=== PATIENT | male | born 1940 | race Caucasian/White ===

== ENCOUNTER 2017-01-25 12:45 | Emergency (ER) | payer MEDICARE, BC ==
[~2017-01-25] VITALS: Ht 177.8 cm; Wt 77.3 kg
[~2017-01-25 12:45] MED LIST: FLUOXETINE; INSULIN HUMA100 U/ML IJ; LANTUS100 U/ML; LIPITOR; PLAVIX 75MG TAB75 MG PO; RAMIPRIL5 MG PO; ZETIA 10MG TAB10 MG PO
[2017-01-25 12:51] VITALS: TEMP 98.7
[2017-01-25 13:39] LABS: BASO % 0.2 % (0.0-2.0); EOS % 0.1 % (0-4.0); GRAN # 9.3 (1.4-6.5); GRAN % 79.8 % (42.2-75.2); HEMATOCRIT 39.1 % (42.0-52.0); HEMOGLOBIN 13.5 g/dl (13.5-18.0); LYMPH # 1.5 (1.2-3.4); LYMPH % 12.6 % (20.0-51.0); MEAN CELL VOLUME 94 fl (80.0-100.0); MEAN CORPUSCULAR HEMOGLOBIN 33 pg (27.0-31.0); MEAN CORPUSCULAR HGB CONC 35 g/dl (33.0-37.0); MEAN PLATELET VOLUME 10.1 fl (7.4-10.4); MONO # 0.8 (0.1-0.6); MONO % 6.9 % (1.7-9.3); PLATELET COUNT 233 K/mm3 (130-400); RED BLOOD COUNT 4.14 M/mm3 (4.20-5.60); REDCELL DISTRIBUTION WIDTH-CV 12.3 % (11.5-14.5); WHITE BLOOD COUNT 11.7 K/mm3 (4.8-10.8)
[2017-01-25 13:57] LABS: ADJUSTED CALCIUM 8.9 mg/dL (8.4-10.2); ALANINE AMINOTRANSFERASE 20 U/L (21-72); ALBUMIN 4.2 gm/dL (3.5-5.0); ALKALINE PHOSPHATASE 104 U/L (50-136); ANION GAP 12 mmol/L (7-16); BILIRUBIN,TOTAL 1.1 mg/dL (0.0-1.0); BLOOD UREA NITROGEN 9 mg/dL (9-20); C-REACTIVE PROTEIN 7.2 mg/dL (0.0-0.9); CALCIUM 9.1 mg/dL (8.4-10.2); CARBON DIOXIDE 25 mmol/L (22-30); CHLORIDE 93 mmol/L (98-107); CREATININE, serum 0.72 mg/dL (0.66-1.25); GLUCOSE 276 mg/dL (74-106); LIPASE 48 U/L (23-300); POTASSIUM 4.2 mmol/L (3.4-5.0); SODIUM 130 mmol/L (137-145); TOTAL PROTEIN 7.3 gm/dL (6.4-8.2)
[2017-01-25] MEDS ORDERED: CIPRO 500MG TA500 MG PO (15:19)
[2017-01-25] MEDS ORDERED: FLAGYL500 MG PO (15:19)
[2017-01-25 15:44] VITALS: BP 168/85; PULSE 100
== END 2017-01-25 15:44 | disposition home or self-care (01) ==
LOC: COL.ER 12:45
PROVIDERS: Emergency Medicine
DX: K52.9 Noninfective gastroenteritis and colitis, unspecified (principal); R11.2 Nausea with vomiting, unspecified; I25.10 Atherosclerotic heart disease of native coronary artery without angina pectoris; Z95.1 Presence of aortocoronary bypass graft; Z79.02 Long term (current) use of antithrombotics/antiplatelets; E11.65 Type 2 diabetes mellitus with hyperglycemia; Z79.4 Long term (current) use of insulin
CPT/HCPCS: J1815; J2405; J7030; Q9967

== ENCOUNTER 2017-03-14 09:12 | Day surgery (SDC) | payer MEDICARE, BC ==
[~2017-03-14] VITALS: Ht 175.3 cm; Wt 80.9 kg
[~2017-03-14 09:12] MED LIST changes: +CIPRO 500MG TA500 MG PO; +FLAGYL500 MG PO
[2017-03-14 09:26] VITALS: BP 146/91; PULSE 80; TEMP 97.9
[2017-03-14] MEDS ORDERED: ASPIRIN E.C. 8181 MG PO (10:04)
[2017-03-14] MEDS ORDERED: AGGRENOX ER 251 CER PO (10:05)
[2017-03-14 10:08] LABS: WBGINFORM 164 mg/dL (70-110)
[2017-03-14] MEDS ORDERED: DALMANE30 MG PO (10:08)
[2017-03-14 11:27] VITALS: BP 126/74; PULSE 84; TEMP 97.4
[2017-03-14 11:45] VITALS: BP 129/68; PULSE 65
[2017-03-14 12:00] VITALS: BP 125/93; PULSE 85
[2017-03-14 16:27] VITALS: BP 151/75; PULSE 85
[2017-03-15 11:14] LABS: PYLORITEK NEG
[2017-03-16 12:44] LABS: PATHOLOGY PLS
== END 2017-03-14 12:24 | disposition home or self-care (01) ==
LOC: SDCO 09:12
PROVIDERS: Internal Medicine Gastroenterology
DX: K64.0 First degree hemorrhoids (principal); D64.9 Anemia, unspecified; K29.30 Chronic superficial gastritis without bleeding; K92.1 Melena; E11.9 Type 2 diabetes mellitus without complications; E78.5 Hyperlipidemia, unspecified; I25.10 Atherosclerotic heart disease of native coronary artery without angina pectoris; Z90.49 Acquired absence of other specified parts of digestive tract; Z95.1 Presence of aortocoronary bypass graft; Z79.4 Long term (current) use of insulin; Z79.01 Long term (current) use of anticoagulants; Z86.73 Personal history of transient ischemic attack (TIA), and cerebral infarction without residual deficits
CPT/HCPCS: OP; J2250; J3010; J7030

== ENCOUNTER 2017-10-23 14:34 | Outpatient (RCR) | payer MEDICARE, BC ==
[~2017-10-23 14:34] MED LIST changes: +AGGRENOX ER 251 CER PO; +ASPIRIN E.C. 8181 MG PO; +DALMANE30 MG PO
== END 2018-01-21 | disposition home or self-care (01) ==
LOC: COL.CR
DX: Z48.812 Encounter for surgical aftercare following surgery on the circulatory system (principal); Z95.4 Presence of other heart-valve replacement; I35.0 Nonrheumatic aortic (valve) stenosis

== ENCOUNTER 2017-12-18 13:45 | Outpatient (RCR) | payer MEDICARE, BC | END 2018-01-10 13:38 | disposition home or self-care (01) | LOC: COL.CR 13:45 | DX: Z48.812 Encounter for surgical aftercare following surgery on the circulatory system (principal); Z95.2 Presence of prosthetic heart valve; Z95.1 Presence of aortocoronary bypass graft; I35.0 Nonrheumatic aortic (valve) stenosis ==

== ENCOUNTER 2018-04-11 16:11 | Observation (INO) | payer MEDICARE, BC ==
[~2018-04-11] VITALS: Ht 177.8 cm; Wt 76.2 kg
[~2018-04-11 16:11] MED LIST changes: -FLUOXETINE; -INSULIN HUMA100 U/ML IJ; +INSULIN HUMA100 U/ML SQ; -LANTUS100 U/ML; +LANTUS100 U/ML SQ; -LIPITOR; +LIPITOR 80MG80 MG PO; +PROZAC 20MG20 MG PO
[2018-04-11 16:47] LABS: BASO # 0.1 (0.0-0.2); BASO % 0.5 % (0.0-2.0); EOS # 0.2 (0.0-0.7); EOS % 2.2 % (0-4.0); GRAN # 6.7 (1.4-6.5); GRAN % 73.3 % (42.2-75.2); HEMOGLOBIN 12.2 g/dl (13.5-18.0); LYMPH # 1.6 (1.2-3.4); LYMPH % 17.4 % (20.0-51.0); MEAN CELL VOLUME 89 fl (80.0-100.0); MEAN CORPUSCULAR HEMOGLOBIN 30 pg (27.0-31.0); MEAN CORPUSCULAR HGB CONC 34 g/dl (33.0-37.0); MEAN PLATELET VOLUME 9.7 fl (7.4-10.4); MONO # 0.6 (0.1-0.6); MONO % 6.2 % (1.7-9.3); PLATELET COUNT 283 K/mm3 (130-400); RED BLOOD COUNT 4.05 M/mm3 (4.20-5.60); REDCELL DISTRIBUTION WIDTH-CV 13.8 % (11.5-14.5)
[2018-04-11 16:55] LABS: ALBUMIN 3.8 gm/dL (3.5-5.0); BILIRUBIN,TOTAL 0.3 mg/dL (0.0-1.0); CALCIUM 9.4 mg/dL (8.4-10.2); CREATININE, serum 1.1 mg/dL (0.66-1.25); POTASSIUM 4.4 mmol/L (3.4-5.0); TOTAL PROTEIN 6.7 gm/dL (6.4-8.2)
[2018-04-11] MEDS ORDERED: COREG 6.256.25 MG/TA PO (17:03)
[2018-04-11] MEDS ORDERED: PLAVIX 75MG TAB75 MG PO (17:04)
[2018-04-11] MEDS ORDERED: LOMOTIL 0.025 M1 TAB PO (17:07)
[2018-04-11] MEDS ORDERED: LASIX 20MG TABL20 MG PO (17:08)
[2018-04-11] MEDS ORDERED: APRISO0.375 GM PO (17:09)
[2018-04-11 17:10] LABS: TROPONIN-I 0.047 ng/mL (0.000-0.034)
[2018-04-11] MEDS ORDERED: ALDACTONE 25MG25 M1 PO (17:11)
[2018-04-11 17:35] LABS: COLLECTION METHOD CLEAN CATCH
[2018-04-11 17:42] LABS: MUCOUS Present /lpf; PH 6 (5-8); SQUAMOUS EPITHELIAL 0-2 /hpf; URINE APPEARANCE Clear; URINE BACTERIA None Seen /hpf; URINE BILIRUBIN Negative (NEGATIVE); URINE BLOOD Negative (NEGATIVE); URINE COLOR Yellow; URINE GLUCOSE 3+ (NEGATIVE); URINE KETONE Negative (NEGATIVE); URINE LEUKOCYTE ESTERASE Negative (NEGATIVE); URINE NITRATE Negative (NEGATIVE); URINE PROTEIN(semi-quant) Negative (NEGATIVE); URINE RBC 0-2 /hpf; URINE UROBILINOGEN Negative (NEGATIVE)
[2018-04-11 19:03] VITALS: BP 142/69; PULSE 80; TEMP 98.4
[2018-04-11 23:02] VITALS: BP 115/69; PULSE 85; TEMP 98.4
[2018-04-12 04:02] VITALS: BP 119/61; PULSE 83; TEMP 98.2
[2018-04-12 08:23] VITALS: BP 137/68; PULSE 78; TEMP 97.5
[2018-04-12 09:21] LABS: CALCIUM 8.9 mg/dL (8.4-10.2); CREATININE, serum 0.76 mg/dL (0.66-1.25); POTASSIUM 4.2 mmol/L (3.4-5.0)
[2018-04-12 09:31] LABS: TROPONIN-I 0.051 ng/mL (0.000-0.034)
[2018-04-12 12:06] VITALS: BP 118/61; PULSE 64; TEMP 97.3
[2018-04-12] MEDS ORDERED: NORVASC2.5 MG PO (15:25)
== END 2018-04-12 16:51 | disposition home or self-care (01) ==
LOC: COL.ER 16:11 → SURG 18:18
PROVIDERS: Emergency Medicine
DX: R55 Syncope and collapse (principal); R42 Dizziness and giddiness; R79.89 Other specified abnormal findings of blood chemistry; I27.20 Pulmonary hypertension, unspecified; I08.0 Rheumatic disorders of both mitral and aortic valves; I25.10 Atherosclerotic heart disease of native coronary artery without angina pectoris; E11.9 Type 2 diabetes mellitus without complications; Z79.4 Long term (current) use of insulin; D50.9 Iron deficiency anemia, unspecified; Z86.73 Personal history of transient ischemic attack (TIA), and cerebral infarction without residual deficits; E78.5 Hyperlipidemia, unspecified; Z95.1 Presence of aortocoronary bypass graft; Z95.2 Presence of prosthetic heart valve; Z79.82 Long term (current) use of aspirin; Z79.899 Other long term (current) drug therapy; G47.00 Insomnia, unspecified; Z87.891 Personal history of nicotine dependence
CPT/HCPCS: G0378; J1650; J1815; J7030

== ENCOUNTER → 2018-04-20 | Outpatient (CLI) | payer MEDICARE, BC ==
[~2018-04-20] MED LIST changes: +ALDACTONE 25MG25 M1 PO; +APRISO0.375 GM PO; +COREG 6.256.25 MG/TA PO; +LASIX 20MG TABL20 MG PO; +LOMOTIL 0.025 M1 TAB PO; +NORVASC2.5 MG PO
== END ==
LOC: COL.CARD 08:30
DX: I49.9 Cardiac arrhythmia, unspecified (principal); R42 Dizziness and giddiness; H53.131 Sudden visual loss, right eye

== ENCOUNTER 2018-09-06 08:03 | Inpatient (IN) | payer MEDICARE, BC ==
[2018-09-06] VITALS (9 sets, daily range): BP systolic 122–147; BP diastolic 39–69; PULSE 53–96; TEMP 99.3–99.5
[~2018-09-06] VITALS: Ht 177.8 cm; Wt 80.4 kg
[2018-09-06 08:32] LABS: BASO % 0.3 % (0.0-2.0); EOS # 0.1 (0.0-0.7); EOS % 0.6 % (0-4.0); GRAN # 11.6 (1.4-6.5); GRAN % 82.6 % (42.2-75.2); HEMATOCRIT 38.9 % (42.0-52.0); HEMOGLOBIN 12.9 g/dl (13.5-18.0); LYMPH # 1.6 (1.2-3.4); LYMPH % 11.3 % (20.0-51.0); MEAN CELL VOLUME 94 fl (80.0-100.0); MEAN CORPUSCULAR HEMOGLOBIN 31 pg (27.0-31.0); MEAN CORPUSCULAR HGB CONC 33 g/dl (33.0-37.0); MONO # 0.7 (0.1-0.6); MONO % 4.8 % (1.7-9.3); PLATELET COUNT 284 K/mm3 (130-400); RED BLOOD COUNT 4.15 M/mm3 (4.20-5.60); REDCELL DISTRIBUTION WIDTH-CV 12.1 % (11.5-14.5)
[2018-09-06 08:46] LABS: ALANINE AMINOTRANSFERASE 34 U/L (21-72); ALBUMIN 4.1 gm/dL (3.5-5.0); ALKALINE PHOSPHATASE 122 U/L (50-136); ANION GAP 7 mmol/L (7-16); AST,SGOT 28 U/L (15-37); BILIRUBIN,TOTAL 0.4 mg/dL (0.0-1.0); BLOOD UREA NITROGEN 15 mg/dL (9-20); C-REACTIVE PROTEIN < 0.5 mg/dL (0.0-0.9); CALCIUM 9.4 mg/dL (8.4-10.2); CARBON DIOXIDE 29 mmol/L (22-30); CHLORIDE 101 mmol/L (98-107); CREATININE, serum 0.74 mg/dL (0.66-1.25); GLUCOSE 336 mg/dL (74-106); POTASSIUM 4.4 mmol/L (3.4-5.0); SODIUM 137 mmol/L (137-145)
[2018-09-06 09:11] LABS: TROPONIN-I < 0.012 ng/mL (0.000-0.034)
[2018-09-06 09:16] LABS: COLLECTION METHOD CLEAN CATCH
[2018-09-06 09:24] LABS: MUCOUS Present /lpf; PH 6 (5-8); SQUAMOUS EPITHELIAL None Seen /hpf; URINE APPEARANCE Clear; URINE BACTERIA None Seen /hpf; URINE BILIRUBIN Negative (NEGATIVE); URINE BLOOD Negative (NEGATIVE); URINE COLOR Yellow; URINE GLUCOSE 3+ (NEGATIVE); URINE KETONE 1+ (NEGATIVE); URINE LEUKOCYTE ESTERASE Negative (NEGATIVE); URINE NITRATE Negative (NEGATIVE); URINE PROTEIN(semi-quant) Negative (NEGATIVE); URINE RBC 0-2 /hpf; URINE UROBILINOGEN Negative (NEGATIVE)
[2018-09-06] MEDS ORDERED: PROBIOTIC ACID1 EAC3 PO (13:47)
[2018-09-06] MEDS ORDERED: IRON 27 MG PO (13:50)
[2018-09-07] VITALS (10 sets, daily range): BP systolic 108–127; BP diastolic 48–68; PULSE 68–94; TEMP 97.9–99
[2018-09-07 06:05] LABS: HEMATOCRIT 34.2 % (42.0-52.0); HEMOGLOBIN 11.4 g/dl (13.5-18.0); MEAN CELL VOLUME 93 fl (80.0-100.0); MEAN CORPUSCULAR HEMOGLOBIN 31 pg (27.0-31.0); MEAN CORPUSCULAR HGB CONC 33 g/dl (33.0-37.0); MEAN PLATELET VOLUME 10.1 fl (7.4-10.4); PLATELET COUNT 269 K/mm3 (130-400); RED BLOOD COUNT 3.66 M/mm3 (4.20-5.60); REDCELL DISTRIBUTION WIDTH-CV 12.4 % (11.5-14.5)
[2018-09-07 06:11] LABS: ALBUMIN 3.3 gm/dL (3.5-5.0); BILIRUBIN,TOTAL 0.5 mg/dL (0.0-1.0); CALCIUM 9.3 mg/dL (8.4-10.2); CREATININE, serum 0.78 mg/dL (0.66-1.25); POTASSIUM 4.4 mmol/L (3.4-5.0); TOTAL PROTEIN 6.1 gm/dL (6.4-8.2)
[2018-09-07 06:26] LABS: BAND 26 % (0-10); LYMPHOCYTE 8 % (20.0-51.0); METAMYELOCYTE 1 % (0-0); NEUTROPHILS 63 % (42.0-75.2)
[2018-09-07 06:27] LABS: PLATELET ESTIMATE NORMAL (NORMAL)
[2018-09-08] VITALS (7 sets, daily range): BP systolic 102–128; BP diastolic 52–62; PULSE 63–87; TEMP 97.7–98.3
[2018-09-08 07:00] LABS: BASO % 0.2 % (0.0-2.0); EOS # 0.1 (0.0-0.7); EOS % 0.8 % (0-4.0); GRAN # 9.7 (1.4-6.5); LYMPH # 1.3 (1.2-3.4); LYMPH % 11.1 % (20.0-51.0); MEAN CELL VOLUME 95 fl (80.0-100.0); MEAN CORPUSCULAR HGB CONC 33 g/dl (33.0-37.0); MEAN PLATELET VOLUME 10.5 fl (7.4-10.4); MONO # 0.7 (0.1-0.6); MONO % 5.6 % (1.7-9.3); PLATELET COUNT 223 K/mm3 (130-400); RED BLOOD COUNT 3.03 M/mm3 (4.20-5.60); REDCELL DISTRIBUTION WIDTH-CV 12.5 % (11.5-14.5)
[2018-09-08 07:04] LABS: HEMATOCRIT 28.9 % (42.0-52.0); HEMOGLOBIN 9.5 g/dl (13.5-18.0); MEAN CORPUSCULAR HEMOGLOBIN 31 pg (27.0-31.0)
[2018-09-08 07:13] LABS: CALCIUM 8.8 mg/dL (8.4-10.2); CREATININE, serum 0.8 mg/dL (0.66-1.25); POTASSIUM 3.8 mmol/L (3.4-5.0)
[2018-09-09] VITALS (7 sets, daily range): BP systolic 106–158; BP diastolic 50–72; PULSE 61–87; TEMP 97.5–99.3
[2018-09-09 06:13] LABS: BASO % 0.4 % (0.0-2.0); EOS # 0.2 (0.0-0.7); EOS % 1.9 % (0-4.0); GRAN # 6.2 (1.4-6.5); GRAN % 74.9 % (42.2-75.2); HEMOGLOBIN 10.7 g/dl (13.5-18.0); LYMPH # 1.4 (1.2-3.4); LYMPH % 16.3 % (20.0-51.0); MEAN CELL VOLUME 95 fl (80.0-100.0); MEAN CORPUSCULAR HEMOGLOBIN 31 pg (27.0-31.0); MEAN CORPUSCULAR HGB CONC 33 g/dl (33.0-37.0); MEAN PLATELET VOLUME 10.4 fl (7.4-10.4); MONO # 0.5 (0.1-0.6); MONO % 6.3 % (1.7-9.3); PLATELET COUNT 230 K/mm3 (130-400); RED BLOOD COUNT 3.47 M/mm3 (4.20-5.60); REDCELL DISTRIBUTION WIDTH-CV 12.2 % (11.5-14.5)
[2018-09-09 06:18] LABS: HEMATOCRIT 32.9 % (42.0-52.0)
[2018-09-09 06:23] LABS: CALCIUM 8.7 mg/dL (8.4-10.2); CREATININE, serum 0.75 mg/dL (0.66-1.25); POTASSIUM 3.8 mmol/L (3.4-5.0)
[2018-09-10 03:18] VITALS: BP 134/60; PULSE 79; TEMP 98.2
[2018-09-10 07:17] LABS: BASO % 0.3 % (0.0-2.0); EOS # 0.2 (0.0-0.7); EOS % 2.9 % (0-4.0); HEMOGLOBIN 10.4 g/dl (13.5-18.0); LYMPH # 1.2 (1.2-3.4); LYMPH % 16.8 % (20.0-51.0); MEAN CELL VOLUME 93 fl (80.0-100.0); MEAN CORPUSCULAR HEMOGLOBIN 31 pg (27.0-31.0); MEAN CORPUSCULAR HGB CONC 33 g/dl (33.0-37.0); MEAN PLATELET VOLUME 10.2 fl (7.4-10.4); MONO # 0.5 (0.1-0.6); MONO % 7.6 % (1.7-9.3); PLATELET COUNT 229 K/mm3 (130-400); RED BLOOD COUNT 3.35 M/mm3 (4.20-5.60)
[2018-09-10 07:22] LABS: HEMATOCRIT 31.2 % (42.0-52.0)
[2018-09-10 07:26] LABS: CALCIUM 8.5 mg/dL (8.4-10.2); CREATININE, serum 0.7 mg/dL (0.66-1.25); POTASSIUM 4.2 mmol/L (3.4-5.0)
[2018-09-10 07:49] VITALS: BP 118/62; PULSE 79; TEMP 98.2
[2018-09-10 13:15] VITALS: BP 116/62; PULSE 70; TEMP 97.6
[2018-09-10 14:19] VITALS: BP 116/62; PULSE 70; TEMP 97.6
== END 2018-09-10 15:00 | DRG 330 ==
LOC: COL.ER 08:03 → SURG 10:53
PROVIDERS: Hospitalist; Physician Assistant; Surgery
PROC: 0DTF0ZZ Resection of Right Large Intestine, Open Approach (ICD-10-PCS; principal; 2018-09-06 19:00)
PROC: 0WJP4ZZ Inspection of Gastrointestinal Tract, Percutaneous Endoscopic Approach (ICD-10-PCS; 2018-09-06 19:00)
DX: K55.039 Acute (reversible) ischemia of large intestine, extent unspecified (principal); I50.32 Chronic diastolic (congestive) heart failure; E87.1 Hypo-osmolality and hyponatremia; E44.0 Moderate protein-calorie malnutrition; I27.20 Pulmonary hypertension, unspecified; I25.10 Atherosclerotic heart disease of native coronary artery without angina pectoris; I11.0 Hypertensive heart disease with heart failure; E11.65 Type 2 diabetes mellitus with hyperglycemia; E78.5 Hyperlipidemia, unspecified; Z79.01 Long term (current) use of anticoagulants; Z95.1 Presence of aortocoronary bypass graft; Z95.2 Presence of prosthetic heart valve; Z87.891 Personal history of nicotine dependence; Z95.5 Presence of coronary angioplasty implant and graft; Z79.4 Long term (current) use of insulin; D64.9 Anemia, unspecified; Z68.25 Body mass index [BMI] 25.0-25.9, adult
CPT/HCPCS: 99223; 99232-AI; A4314; A9284; G8978-GP; G8979-GP; G8987-GO; G8988-GO; J0690; J1100; J1170; J1650; J1815; J1956; J2370; J2405; J2704; J2710; J3010; J7030; J7120

== ENCOUNTER 2019-11-14 08:30 | Day surgery (SDC) | payer MEDICARE, BC ==
[~2019-11-14] VITALS: Ht 182.9 cm; Wt 62.2 kg
[2019-11-14] VITALS (562 sets, daily range): BP systolic 128–162; BP diastolic 69–91; PULSE 75–90; TEMP 97.8–98.2; O2SAT 91–100
[~2019-11-14 08:30] MED LIST changes: +IRON 27 MG PO; +PROBIOTIC ACID1 EAC3 PO
[2019-11-14 09:16] LABS: CALCIUM 9.4 mg/dL (8.4-10.2); CREATININE, serum 0.87 (0.66-1.25); POTASSIUM 4.2 mmol/L (3.4-5.0)
[2019-11-14] MEDS ORDERED: COREG12.5 MG PO (09:18)
[2019-11-14] MEDS ORDERED: NORVASC2.5 MG PO (09:19)
[2019-11-14 09:20] LABS: HEMATOCRIT 42.6 % (42.0-52.0); HEMOGLOBIN 14.5 g/dl (13.5-18.0); MEAN CELL VOLUME 95 fl (80.0-100.0); MEAN CORPUSCULAR HEMOGLOBIN 32 pg (27.0-31.0); MEAN CORPUSCULAR HGB CONC 34 g/dl (33.0-37.0); MEAN PLATELET VOLUME 10.5 fl (7.4-10.4); PLATELET COUNT 199 K/mm3 (130-400); RED BLOOD COUNT 4.51 M/mm3 (4.20-5.60); REDCELL DISTRIBUTION WIDTH-CV 12.4 % (11.5-14.5)
[2019-11-14] MEDS ORDERED: ELIQUIS 5MG PO (09:20)
[2019-11-14] MEDS ORDERED: LASIX 20MG TABL20 MG PO (09:22)
[2019-11-14] MEDS ORDERED: NITROSTAT0.4 MG/TAB SL (09:25)
[2019-11-14 09:26] LABS: INR 0.9 (0.8-3.0); PROTHROMBIN TIME 9.9 SECONDS (9.7-12.8)
[2019-11-14 09:28] LABS: PARTIAL THROMBOPLASTIN TIME 26.3 SECONDS (26.0-37.0)
--- NOTE | 2019-11-14 09:49 | NUR ---
SEE MERGE DOCUMENTATION FOR MEDICATION ADMINISTRATION TIMES AND INTRA AND POST PROCEDURE SEDATION ASSESSMENTS.
--- NOTE | 2019-11-14 11:40 | NUR ---
Report received pt to go to ICU after procedure.
--- NOTE | 2019-11-14 12:10 | NUR ---
Pt arrived from laboratory chemist at this time to ICU bed 4. Pt arrived with general labor forklift operator staff Santana RN and CATINA Toro. Pt tolerated transfer well with no complaints or concerns raised to nursing staff. R femoral cath site examined on transfer with general labor forklift operator and noted to be clean, dry, et intact with no drainage or hematoma upon inspection. Vitals stable upon arrival. Bed in low, flat position, call light within reach, will continue to monitor.
--- NOTE | 2019-11-14 16:00 | NUR ---
Pt resting comfortably in bed. Denies pain or any other discomfort. Vitals stable at this time. R femoral cath site clean, dry, et intact with no drainage or hematoma present. Bed in low position, call light within reach, will continue to monitor.
--- NOTE | 2019-11-14 19:15 | NUR ---
Groin site assessed; clean, dry and intact with no hematoma. Denies any tenderness at site. Patient resting in bed watcing TV at this time. Reports mild occasional shortness of breath; denies any chest pain or other pain. 02 currenlty 95% on RA. No other concerns at this time. Call light within reach at bedside.
--- NOTE | 2019-11-14 19:32 | NUR ---
Bedside report given to CATINA Collier.
[2019-11-15] VITALS (503 sets, daily range): BP systolic 130–162; BP diastolic 67–107; PULSE 85–101; TEMP 98–98.2; O2SAT 78–100
--- NOTE | 2019-11-15 00:15 | NUR ---
Groin site assessed; clean,dry, and intact. Patient denies any concerns at this time.
[2019-11-15 04:24] LABS: BASO % 0.5 % (0.0-2.0); EOS # 0.1 (0.0-0.7); EOS % 1.4 % (0-4.0); GRAN # 4.2 (1.4-6.5); GRAN % 66.7 % (42.2-75.2); HEMATOCRIT 37.6 % (42.0-52.0); HEMOGLOBIN 12.7 g/dl (13.5-18.0); LYMPH # 1.4 (1.2-3.4); LYMPH % 22.1 % (20.0-51.0); MEAN CELL VOLUME 95 fl (80.0-100.0); MEAN CORPUSCULAR HEMOGLOBIN 32 pg (27.0-31.0); MEAN CORPUSCULAR HGB CONC 34 g/dl (33.0-37.0); MEAN PLATELET VOLUME 10.2 fl (7.4-10.4); MONO # 0.6 (0.1-0.6); MONO % 8.7 % (1.7-9.3); PLATELET COUNT 177 K/mm3 (130-400); RED BLOOD COUNT 3.95 M/mm3 (4.20-5.60); REDCELL DISTRIBUTION WIDTH-CV 12.3 % (11.5-14.5)
[2019-11-15 04:32] LABS: CALCIUM 9.5 mg/dL (8.4-10.2); CREATININE, serum 0.89 (0.66-1.25); POTASSIUM 3.9 mmol/L (3.4-5.0)
--- NOTE | 2019-11-15 07:00 | NUR ---
BEDSIDE REPORT RECEIVED FROM CATINA RILEY
[2019-11-15] MEDS ORDERED: BRILINTA90 MG PO (09:02)
[2019-11-15] MEDS ORDERED: ASPIRIN 81M81 MG/TA2 PO (09:03)
[2019-11-15] MEDS ORDERED: NORVASC 5MG5 MG/TAB PO (09:18)
--- NOTE | 2019-11-15 11:35 | NUR ---
DISCHARGE PACKET REVIEWED. PATIENT AND SON VERBALIZE UNDERSTANDING. PATIENT ESCORTED OUT TO MAIN ENTRANCE.
== END 2019-11-15 11:36 | disposition home or self-care (01) ==
LOC: COL.CAR 08:30 → ICU 12:41 → COL.CAR 11-15 11:36
PROVIDERS: Internal Medicine Cardiovascular Disease
DX: I25.10 Atherosclerotic heart disease of native coronary artery without angina pectoris (principal); Z88.0 Allergy status to penicillin; I48.0 Paroxysmal atrial fibrillation; Z95.1 Presence of aortocoronary bypass graft; I08.1 Rheumatic disorders of both mitral and tricuspid valves; Z79.01 Long term (current) use of anticoagulants; Z95.2 Presence of prosthetic heart valve; Z79.899 Other long term (current) drug therapy; I11.0 Hypertensive heart disease with heart failure; I50.9 Heart failure, unspecified; E11.9 Type 2 diabetes mellitus without complications; Z79.4 Long term (current) use of insulin; E78.5 Hyperlipidemia, unspecified; K50.90 Crohn's disease, unspecified, without complications; F32.9 Major depressive disorder, single episode, unspecified; Z85.828 Personal history of other malignant neoplasm of skin; Z90.49 Acquired absence of other specified parts of digestive tract; Z87.891 Personal history of nicotine dependence; Z95.818 Presence of other cardiac implants and grafts
CPT/HCPCS: OP; C9600; J0583; J1644; J1815; J2250; J3010; Q9967

== ENCOUNTER 2023-11-01 13:05 | Day surgery (SDC) | payer MEDICARE, BC ==
[~2023-11-01] VITALS: Ht 177.8 cm; Wt 83.5 kg
[~2023-11-01 13:05] MED LIST changes: +ASPIRIN 81M81 MG/TA2 PO; +BRILINTA90 MG PO; +COREG12.5 MG PO; +ELIQUIS 5MG PO; +NITROSTAT0.4 MG/TAB SL; +NORVASC 5MG5 MG/TAB PO
[2023-11-01 13:31] VITALS: BP 124/56; PULSE 70; TEMP 98.5
[2023-11-01] MEDS ORDERED: CLARITIN 1010 MG/TAB PO (13:55)
[2023-11-01] MEDS ORDERED: TOPROL XL 25MG25 MG PO (13:55)
[2023-11-01] MEDS ORDERED: FERROUSAL325 MG PO (13:55)
[2023-11-01] MEDS ORDERED: K-DUR 10 MEQ T10 MEQ PO (13:56)
[2023-11-01] MEDS ORDERED: DESYREL 50MG50 MG PO (13:59)
[2023-11-01] MEDS ORDERED: JARDIANCE25 PO (14:00)
[2023-11-01] MEDS ORDERED: Vancomycin 1.5 GM,Special Dose/Pharmacy Prepared 1.5 GM in NS 250 ML IV ONE (15:30)
--- NOTE | 2023-11-01 15:36 | NUR ---
See merge for all medication, assessment,intervention,and vital sign times.
[2023-11-01] MEDS ORDERED: Midazolam 2 MG/2 ML VIAL IV SCH (15:46)
[2023-11-01] MEDS ORDERED: fentaNYL 50 MCG/ML 2 ML VIAL IV SCH (15:46)
[2023-11-01] MEDS ORDERED: Vancomycin 1 GM VIAL IR SCH (15:47)
[2023-11-01 16:00] VITALS: BP 115/59; PULSE 66
--- NOTE | 2023-11-01 16:10 | NUR ---
Bedside report completed with Trisha DOMINIQUE. Call light within reach, first set of vitals reviewed. Relayed verbal order from Dr. Crump to only infuse 1G of vancomycin. Total of 167 ml. Pump programmed to alarm when 1G dose completed.
[2023-11-01 16:15] VITALS: BP 100/62; PULSE 66
[2023-11-01 16:30] VITALS: BP 113/57; PULSE 64
[2023-11-01 16:45] VITALS: BP 126/57; PULSE 66
--- NOTE | 2023-11-01 17:13 | NUR ---
pt tolerated recovery period well. vs remained within normal limits and pt remained free from acute concerns and complaints. chest dressing remained clean dry and intact upon discharge. IV discontinued and pt verbalized understanding of discharge instructions.
== END 2023-11-01 17:14 | disposition home or self-care (01) ==
LOC: COL.CAR 13:05
DX: Z45.09 Encounter for adjustment and management of other cardiac device (principal); I48.0 Paroxysmal atrial fibrillation; I11.0 Hypertensive heart disease with heart failure; I50.32 Chronic diastolic (congestive) heart failure; Z87.891 Personal history of nicotine dependence; Z79.899 Other long term (current) drug therapy
CPT/HCPCS: C1764; J0665-JZ; J2250; J3010; J3370; J7050

== ENCOUNTER 2024-07-09 08:13 | Day surgery (SDC) | payer MEDICARE, BC ==
[~2024-07-09] VITALS: Ht 177.8 cm; Wt 84.7 kg
[~2024-07-09 08:13] MED LIST changes: +CLARITIN 1010 MG/TAB PO; +DESYREL 50MG50 MG PO; +FERROUSAL325 MG PO; +JARDIANCE25 PO; +K-DUR 10 MEQ T10 MEQ PO; +LR 1,000 ML IV SCH; +TOPROL XL 25MG25 MG PO
[2024-07-09 08:52] VITALS: BP 124/60; PULSE 68; TEMP 99
[2024-07-09 09:00] LABS: BASO # 0.1 K/mm3 (0.0-0.2); BASO % 0.8 % (0.0-2.0); EOS # 0.3 K/mm3 (0.0-0.7); EOS % 4.4 % (0.0-4.0); GRAN # 5.1 K/mm3 (1.4-6.5); GRAN % 66.6 % (42.2-75.2); HEMATOCRIT 35.1 % (42.0-52.0); HEMOGLOBIN 11.2 g/dl (13.5-18.0); LYMPH # 1.5 K/mm3 (1.2-3.4); LYMPH % 19.1 % (20.0-51.0); MEAN CELL VOLUME 102 fl (80.0-100.0); MEAN CORPUSCULAR HEMOGLOBIN 33 pg (27-31); MEAN CORPUSCULAR HGB CONC 32 g/dl (33.0-37.0); MEAN PLATELET VOLUME 10.1 fl (7.4-10.4); MONO # 0.7 K/mm3 (0.1-0.6); MONO % 8.7 % (1.7-9.3); PLATELET COUNT 286 K/mm3 (130-400); RED BLOOD COUNT 3.44 M/mm3 (4.20-5.60); REDCELL DISTRIBUTION WIDTH-CV 13.7 % (11.5-14.5)
[2024-07-09 09:15] LABS: INR 1.3 (0.8-3.0); PROTHROMBIN TIME 13.7 SECONDS (9.7-12.8)
[2024-07-09 09:16] LABS: CALCIUM 9.2 mg/dL (8.4-10.2); CREATININE, serum 0.98 mg/dL (0.72-1.25)
[2024-07-09] MEDS ORDERED: 1/2 NS 1,000 ML IV SCH (09:45)
[2024-07-09] MEDS ORDERED: NS Flush 10 ML SYRINGE PRN ICA (09:45)
[2024-07-09] MEDS ORDERED: TYLENOL 325MG325 MG PO (10:01)
[2024-07-09] MEDS ORDERED: B-121000 MCG PO (10:02)
[2024-07-09] MEDS ORDERED: ASPIRIN 81M81 MG/TA2 PO (10:02)
[2024-07-09] MEDS ORDERED: LANTUS100 U/ML SQ (10:05)
[2024-07-09] MEDS ORDERED: INSULIN AS100 UNIT/2 SQ (10:05)
[2024-07-09] MEDS ORDERED: SENNA-S 50 MG-81 TAB PO (10:07)
[2024-07-09] MEDS ORDERED: Lidocaine PF 2% (20 MG/ML) 5 ML VIAL ONE (10:50)
[2024-07-09 11:35] VITALS: BP 110/49; PULSE 66
--- NOTE | 2024-07-09 11:37 | NUR ---
Juvenal is awake and alert after ABILIO with DR. Crump. He tolerating ice chips with no problem. BS report and handoff of care to Margarita DOMINIQUE.
[2024-07-09 11:45] VITALS: BP 117/80; PULSE 67
[2024-07-09 12:00] VITALS: BP 120/62; PULSE 64
[2024-07-09 12:15] VITALS: BP 113/51; PULSE 70
[2024-07-09 12:30] VITALS: BP 131/52; PULSE 68
--- NOTE | 2024-07-09 13:04 | NUR ---
The pt ambulated with a steady gait to EU11, scheduled for a ABILIO. EKG done. IV started. Meds and HX reviewed with the pt. Consent for the procedure signed. Post procedure the pt remained in EU11. Offered the pt something to eat and drink. They accepted some ice chips and a pudding. Once their recovery time was finished discharge education and information was discussed with them. No questions at the time. The pt exited the unit by wheelchair to sons car.
[2024-07-09] MEDS ORDERED: NS Flush 10 ML SYRINGE BID ICA SCH (21:00)
== END 2024-07-09 12:37 | disposition home or self-care (01) ==
LOC: COL.CAR 08:13
PROVIDERS: Internal Medicine Cardiovascular Disease
DX: Z51.89 Encounter for other specified aftercare (principal); I48.91 Unspecified atrial fibrillation; Z95.1 Presence of aortocoronary bypass graft; Z95.818 Presence of other cardiac implants and grafts
CPT/HCPCS: J2704